=== PATIENT | female | born 1995 | race Caucasian/White ===

== ENCOUNTER 2019-12-07 19:53 | Emergency (ER) | payer SELFPAY ==
[2019-12-07 20:03] VITALS: BP 126/84; PULSE 94; RESP 17; TEMP 37.2; O2SAT 100
--- NOTE | 2019-12-07 21:31 | ED_ITS ---
HPI - URI/Sore Throat General Chief Complaint: Upper Respiratory Infection Stated Complaint: chills,fever,ST Time Seen by Provider: 12/07/19 20:52 History of Present Illness HPI Narrative: Patient is a 24-year-old female who presents the ER with cold symptoms. She reports sore throat that is worse at night with laying down. Developed cough today. Subjective fevers and chills. No body aches. No known sick contacts. Works at [employer]. Denies any shortness of breath. No known COVID exposure. Related Data Home Medications Medication Instructions Recorded Confirmed No Home Medications 12/07/19 12/07/19 Allergies Allergy/AdvReac Type Severity Reaction Status Date / Time No Known Allergies Allergy Verified 12/07/19 20:09 Review of Systems Review of Systems: All systems reviewed & are unremarkable except as noted in HPI and below Constitutional: Constitutional: Denies chills and Reports fever(s) PMFSH Past Medical History Medical History (Updated 12/07/19 @ 21:47 by Adam Odell MD) No pertinent past medical history Surgical History Surgical History (Updated 12/07/19 @ 21:42 by Adam Odell MD) H/O section Social History Social History (Updated 12/07/19 @ 21:42 by Adam Odell MD) Smoking status: Never smoker Gender identity (if verbalized by the patient): Female Exam Narrative: Exam Narrative: GENERAL: Well-appearing, well-nourished, and in no acute distress. HEAD: Normocephalic, atraumatic. ENT: Mucous membranes moist. No pharyngeal erythema or tonsillar exudate. CHEST: Clear to auscultation. No respiratory distress. HEART: Regular rate and rhythm. Normal peripheral pulses. EXTREMITIES: Normal range of motion. No edema. NEURO: Alert and oriented x3. Course Course Emergency Course: Strep negative. Viral syndrome. Follow-up with PCP. Vital Signs Vital signs: Vital Signs Temperature 99.0 F 12/07/19 20:03 Pulse Rate 94 12/07/19 20:03 Respiratory Rate 17 12/07/19 20:03 Blood Pressure 126/84 12/07/19 20:03 Pulse Oximetry 100 12/07/19 20:03 Temperature 99.0 F 12/07/19 20:03 Pulse Rate 94 12/07/19 20:03 Respiratory Rate 17 12/07/19 20:03 Blood Pressure 126/84 12/07/19 20:03 Pulse Oximetry 100 12/07/19 20:03 MDM - URI/Sore Throat Lab Data Labs: Strep Screen Presumptive Negative *(Reference Range: Negative)* Discharge Plan Discharge Clinical Impression: Acute viral syndrome Patient Disposition: Home, Self-Care Condition: Stable Instructions: Viral Syndrome (ED) Additional Instructions: Return to the ER if you have shortness of breath, you cannot keep down food or water, you lose consciousness, you have additional concerns. If you are having body aches and persistently elevated temperatures you should contact your primary care doctor for follow-up. . Prescriptions: No Action No Home Medications RF: 0 Follow-up/Referrals: Tania Darden MD [Primary Care Provider] - Jasbir Wiley MD [Physician] - 1 Week Stand Alone Forms: Work/[employer]cho
[2019-12-07 21:56] VITALS: BP 121/81; PULSE 90; RESP 16; O2SAT 100
== END 2019-12-07 21:50 | disposition home or self-care (01) ==
PROVIDERS: Emergency Provider Emergency Medicine; PCP Family Medicine
DX: B34.9 Viral infection, unspecified (principal)
CPT/HCPCS: 87081; 87880; 99283